=== PATIENT | female | born 1955 | race Caucasian/White ===

== ENCOUNTER 2016-12-09 23:49 | Emergency (ER) | payer MEDICARE, MEDICAID ==
[2016-12-10] MEDS ORDERED: METOCLOPRAMIDE 10 MG/2 ML VIAL ONE (01:55)
[2016-12-10] MEDS ORDERED: METHYLPRED SOD SUCC 125 MG/2 ML VIAL ONE (01:55)
[2016-12-10] MEDS ORDERED: KETOROLAC 30 MG/ML VIAL ONE (01:55)
[2016-12-10] MEDS ORDERED: SODIUM CHLORIDE 0.9% 1,000 ML ONE (01:56)
[2016-12-10] MEDS ORDERED: DILAUDID 1 MG/ML AMP ONE (01:56)
[2016-12-10] MEDS ORDERED: HALOPERIDOL 5 MG/ML VIAL ONE (03:15)
[2016-12-10] MEDS ORDERED: DIPHENHYDRAMINE 50 MG/ML VIAL ONE (03:15)
== END 2016-12-10 04:31 | disposition home or self-care (01) ==
LOC: ER 23:49
CPT/HCPCS: 96361 ×2; 96374 ×2; 96375 ×2; 99283; J1170; J1885; J2930